=== PATIENT | male | born 1935 | race Caucasian/White ===

== ENCOUNTER 2020-02-19 13:58 | Emergency (ER) | payer MEDICARE ==
[~2020-02-19] VITALS: Ht 180.3 cm; Wt 83.4 kg
[~2020-02-19 13:58] MED LIST: ACET1TAB64 PO; ALBU8.5H8 INH; AMLO-150 PO; ASPI-515 PO; ASPI-696 PO; ASPI325T17 PO; ATOR-2 PO; ATOR40TA78 PO; AZIT500T10 PO; CLOP75TA PO; DIAZ5TAB4 PO; GUAI118L19 PO; GUAI600T31 PO; LISI10TA2 PO; LISI5TAB7 PO; MEMA5TAB PO; METH4TAB2 PO; OMEP-110 PO; PANT40TA5 PO; POLY10DR3 EACHEYE; ULTIMATE COLON CARE PO
--- NOTE | 2020-02-19 14:36 | NUR ---
THIS IS A 84 YO M W/ C/O DRAINAGE FROM PROCEDURE SITE. PT HAD AN ENDARTERECTOMY DONE LAST WEEK AND REPORTS IT HAS NOT STOPPED DRAINING. PT WAS SEEN BY HIS NEUROLOGIST DIANA BYDR NP TODAY AND WAS ADVISED TO COME STRAIGHT TO ED TO HAVE DRAIN PLACED. PT JAQUI HOLLAND. PT RESTING ON GURNEY W/ CALL LIGHT IN REACH AND FAMILY AT BEDSIDE. DRESSING ON WOUND. AWAITING ED EVAL. Addendum: 02/19/20 at 1441 by MARCO ANTONIO THIS IS A 84 YO M W/ C/O DRAINAGE FROM PROCEDURE SITE. PT HAD A CAROTID ENDARTERECTOMY DONE ON 02/05/20 AND REPORTS IT HAS NOT STOPPED DRAINING. PT WAS SEEN BY HIS NEUROLOGIST DIANA BYRD NP TODAY AND WAS ADVISED TO COME STRAIGHT TO ED TO HAVE DRAIN PLACED. PT JAQUI HOLLAND. PT RESTING ON GURNEY W/ CALL LIGHT IN REACH AND FAMILY AT BEDSIDE. DRESSING ON WOUND. AWAITING ED EVAL.
--- NOTE | 2020-02-19 14:48 | NUR ---
LUNCH RN: PT RESTING IN ROOM, AWAITING FOR PT TO BE SEEN BY MD.
[2020-02-19 15:37] LABS: BASOPHILS # (AUTO) 0.08 x10^3/uL (0-0.1); BASOPHILS % (AUTO) 1 % (0-1); EOSINOPHILS # (AUTO) 1.08 x10^3/uL (0-0.4); EOSINOPHILS % (AUTO) 9 % (1-7); LYMPHOCYTES % (AUTO) 24 % (22-44); MD NO; MEAN CORPUSCULAR HEMOGLOBIN 30.5 pg (27.5-34.5); MEAN CORPUSCULAR VOLUME 92.6 fL (81-97); MEAN PLATELET VOLUME 7.8 fL (7.4-10.4); MONOCYTES % (AUTO) 5 % (2-9); NEUTROPHILS # (AUTO) 7.25 x10^3/uL (1.8-6.8); NEUTROPHILS % (AUTO) 61 % (42-75); PLATELET COUNT 434 x10^3/uL (130-400); RED BLOOD COUNT 4.39 x10^6/uL (4.38-5.82); RED CELL DISTRIBUTION WIDTH 15.8 % (9.4-14.8)
[2020-02-19 15:44] LABS: ANION GAP 3 mmol/L (5-15); CALCIUM 8.4 mg/dL (8.5-10.1); CHLORIDE 109 mmol/L (98-107); CREATININE 1.09 mg/dL (0.7-1.3)
--- NOTE | 2020-02-19 16:12 | NUR ---
PT RESTING ON [place] W/ CALL LIGHT IN REACH, AWAITING CT.
--- NOTE | 2020-02-19 16:45 | NUR ---
PT TO CT.
[2020-02-19 17:03] VITALS: BP 148/67
--- NOTE | 2020-02-19 17:03 | NUR ---
PT SENT BACK FROM CT. CT DOES NOT FEEL COMFORTABLE USING CURRENT PIV. BABAR RIOS IN ROOM W/ US TO START ANOTHER LINE FOR CT.
--- NOTE | 2020-02-19 17:29 | NUR ---
CT CALLED TO COME PROFESSOR OF HISTORY PT.
--- NOTE | 2020-02-19 17:36 | NUR ---
PT TO CT.
[2020-02-19] MEDS ORDERED: OMNIPAQUE 350 MG/ML, 100ML BOTTLE ONE (18:00)
--- NOTE | 2020-02-19 18:36 | NUR ---
IN ROOM TO UPDATE PT ON RESULTS.
[2020-02-19] MEDS ORDERED: NEOSPORIN OINT. PKT 1 PACKET ONE (18:43)
--- NOTE | 2020-02-19 19:19 | NUR ---
Patient given discharge instructions and they have confirmed that they understand the instructions. Patient ambulatory with steady gait.
== END 2020-02-19 19:21 | disposition home or self-care (01) ==
LOC: ED 15:32
DX: L03.221 Cellulitis of neck (principal); I10 Essential (primary) hypertension; E78.5 Hyperlipidemia, unspecified; K21.9 Gastro-esophageal reflux disease without esophagitis; E78.00 Pure hypercholesterolemia, unspecified; Z86.73 Personal history of transient ischemic attack (TIA), and cerebral infarction without residual deficits; Z86.79 Personal history of other diseases of the circulatory system; Z90.10 Acquired absence of unspecified breast and nipple
CPT/HCPCS: 36415; 70491; 80048; 85025; 99285; Q9967

== ENCOUNTER 2020-03-22 10:03 | Outpatient (CLI) | payer MEDICARE ==
[2020-03-22 13:08] LABS: CREATININE 1.09 mg/dL (0.7-1.3)
== END 2020-03-22 23:59 | disposition home or self-care (01) ==
LOC: CFH 10:03
PROVIDERS: ATTEND Nurse Practitioner Family
DX: I63.9 Cerebral infarction, unspecified (principal); I65.21 Occlusion and stenosis of right carotid artery
CPT/HCPCS: 36415; 82565; 84520

== ENCOUNTER → 2020-04-13 | Outpatient (CLI) | payer MEDICARE ==
[~2020-04-13] MED LIST changes: +OMNIPAQUE 350 MG/ML, 100ML BOTTLE ONE
== END | disposition home or self-care (01) ==
LOC: CFH 09:52
PROVIDERS: ATTEND Nurse Practitioner Family
DX: I65.02 Occlusion and stenosis of left vertebral artery (principal); I65.23 Occlusion and stenosis of bilateral carotid arteries; I63.9 Cerebral infarction, unspecified
CPT/HCPCS: 70498; Q9967

== ENCOUNTER → 2020-05-18 | Outpatient (CLI) | payer MEDICARE ==
[~2020-05-18] MED LIST changes: -OMNIPAQUE 350 MG/ML, 100ML BOTTLE ONE; +REGADENOSON 0.4 MG/5 ML SYRINGE ONE
== END | disposition home or self-care (01) ==
LOC: CFH 08:00
PROVIDERS: ATTEND Internal Medicine Cardiovascular Disease
DX: I25.9 Chronic ischemic heart disease, unspecified (principal); I65.21 Occlusion and stenosis of right carotid artery
CPT/HCPCS: 78452; 93017; A9502; J2785

== ENCOUNTER → 2020-05-27 | Outpatient (CLI) | payer MEDICARE ==
[~2020-05-27] MED LIST changes: -REGADENOSON 0.4 MG/5 ML SYRINGE ONE
[2020-05-27 12:58] LABS: CHLORIDE 111 mmol/L (98-107)
[2020-05-27 13:12] LABS: ALANINE AMINOTRANSFERASE 27 U/L (12-78); ALBUMIN 3.7 g/dL (3.4-5.0); ALKALINE PHOSPHATASE 96 U/L (45-117); ANION GAP 8 mmol/L (5-15); BILIRUBIN,TOTAL 0.6 mg/dL (0.2-1.0); CALCIUM 8.4 mg/dL (8.5-10.1); CHOL/HDL RATIO 3.6; CHOLESTEROL, TOTAL 134 mg/dL (140-239); CREATININE 0.83 mg/dL (0.7-1.3); HDL CHOL % 28 % (26-37); HDL CHOLESTEROL (DIRECT) 37 mg/dL (40-60); LDL CHOLESTEROL,CALCULATED 71 mg/dL (54-169); LDL/HDL RATIO 1.9 (0.5-3.0); TRIGLYCERIDES 130 mg/dL (50-200); VLDL CHOLESTEROL 26 mg/dL (0-25)
== END | disposition home or self-care (01) ==
LOC: CFH 08:31
PROVIDERS: ATTEND Internal Medicine Cardiovascular Disease
DX: I10 Essential (primary) hypertension (principal); D64.9 Anemia, unspecified; E78.5 Hyperlipidemia, unspecified; R00.1 Bradycardia, unspecified
CPT/HCPCS: 36415; 80053; 80061

== ENCOUNTER 2020-07-01 10:08 | Observation (INO) | payer MEDICARE ==
[~2020-07-01] VITALS: Ht 180.3 cm; Wt 83.1 kg
[~2020-07-01 10:08] MED LIST changes: -PANT40TA5 PO; +PANT40TA6 PO
[2020-07-01] MEDS ORDERED: LIDOCAINE 2%, 20ML ONE ×2 (11:00→11:35)
[2020-07-01] MEDS ORDERED: MIDAZOLAM 1 MG/ML, 5ML ONE (11:35)
[2020-07-01] MEDS ORDERED: FENTANYL PF 100 MCG/2ML ONE (11:35)
[2020-07-01 11:40] VITALS: BP 133/66
[2020-07-01] MEDS ORDERED: FAMO20TA7 PO (11:50)
[2020-07-01] MEDS ORDERED: AMLO-150 PO (11:50)
[2020-07-01] MEDS ORDERED: ASPI-515 PO (11:50)
[2020-07-01] MEDS ORDERED: LIDOCAINE 1%-EPI 1:100K, 20ML SQ PRN (12:00)
[2020-07-01] MEDS ORDERED: PLEASE ENTER HEIGHT AND WEIGHT MC SCH (12:00)
[2020-07-01] MEDS: SODIUM CHLORIDE 0.9% 1,000 ML IV SCH ×8 (12:00→22:00)
[2020-07-01 12:19] LABS: INTERNATIONAL NORMALIZED RATIO 0.99 (0.93-1.1); PROTHROMBIN TIME 10.2 Seconds (9.6-11.5)
[2020-07-01] MEDS ORDERED: DIPHENHYDRAMINE 50 MG/ML, 1ML ONE (12:23)
[2020-07-01] MEDS ORDERED: methylPREDNISolone SOD SUCC 125 MG/2 ML ONE (12:23)
[2020-07-01 12:26] LABS: BASOPHILS # (AUTO) 0.08 x10^3/uL (0-0.1); BASOPHILS % (AUTO) 1 % (0-1); EOSINOPHILS # (AUTO) 0.86 x10^3/uL (0-0.4); EOSINOPHILS % (AUTO) 9 % (1-7); LYMPHOCYTES # (AUTO) 2.59 x10^3/uL (1-3.4); LYMPHOCYTES % (AUTO) 26 % (22-44); MD NO; MEAN CORPUSCULAR HEMOGLOBIN 29.4 pg (27.5-34.5); MEAN CORPUSCULAR HGB CONC 32.3 g/dL (33.2-36.2); MEAN PLATELET VOLUME 7.4 fL (7.4-10.4); MONOCYTES # (AUTO) 0.52 x10^3/uL (0.2-0.8); MONOCYTES % (AUTO) 5 % (2-9); NEUTROPHILS % (AUTO) 60 % (42-75); PLATELET COUNT 323 x10^3/uL (130-400); RED BLOOD COUNT 4.24 x10^6/uL (4.38-5.82); RED CELL DISTRIBUTION WIDTH 15.9 % (9.4-14.8)
[2020-07-01] MEDS ORDERED: BIVALIRUDIN 250 MG ONE (12:50)
[2020-07-01 13:04] LABS: CHLORIDE 111 mmol/L (98-107)
[2020-07-01 13:09] LABS: ANION GAP 8 mmol/L (5-15); CALCIUM 8.4 mg/dL (8.5-10.1); CREATININE 0.81 mg/dL (0.7-1.3)
[2020-07-01] MEDS ORDERED: BIVALIRUDIN 250 MG in SODIUM CHLORIDE 0.9% 50 ML IV SCH (13:31)
[2020-07-01 19:17] VITALS: BP 114/70
[2020-07-01] MEDS ORDERED: ATORVASTATIN 80 MG TABLET PO SCH (21:00)
[2020-07-01] MEDS: FAMOTIDINE 20 MG TABLET PO SCH (21:00)
[2020-07-01] MEDS: LISINOPRIL 10 MG TABLET PO SCH (21:40)
[2020-07-02 01:26] VITALS: BP 121/62
[2020-07-02] MEDS: SODIUM CHLORIDE 0.9% 1,000 ML IV SCH ×7 (02:00→09:58)
[2020-07-02 06:34] VITALS: BP 136/77
[2020-07-02 06:39] LABS: ANION GAP 6 mmol/L (5-15); CALCIUM 8.3 mg/dL (8.5-10.1); CHLORIDE 111 mmol/L (98-107); CREATININE 0.88 mg/dL (0.7-1.3)
[2020-07-02] MEDS ORDERED: ASPIRIN 81 MG TABLET EC PO SCH (09:00)
[2020-07-02] MEDS ORDERED: CLOPIDOGREL 75 MG TABLET PO SCH (09:00)
[2020-07-02] MEDS ORDERED: AMLODIPINE 5 MG TABLET PO SCH (09:00)
[2020-07-02 09:16] VITALS: BP 136/53
[2020-07-02] MEDS: LISINOPRIL 10 MG TABLET PO SCH (09:19)
[2020-07-02] MEDS: FAMOTIDINE 20 MG TABLET PO SCH (09:21)
== END 2020-07-02 12:42 | disposition home or self-care (01) ==
LOC: CACL 10:08 → 5SO 13:41 → CACL 23:54 → 5SO 23:54 → DCLOUNGE 07-02 12:28
PROVIDERS: ADMIT Internal Medicine Cardiovascular Disease; ATTEND Internal Medicine Cardiovascular Disease
DX: I25.10 Atherosclerotic heart disease of native coronary artery without angina pectoris (principal); I65.21 Occlusion and stenosis of right carotid artery; I10 Essential (primary) hypertension; E78.5 Hyperlipidemia, unspecified; K21.9 Gastro-esophageal reflux disease without esophagitis; D64.9 Anemia, unspecified; I63.9 Cerebral infarction, unspecified; F03.90 Unspecified dementia, unspecified severity, without behavioral disturbance, psychotic disturbance, mood disturbance, and anxiety; H81.09 Meniere's disease, unspecified ear; R93.1 Abnormal findings on diagnostic imaging of heart and coronary circulation; Z86.73 Personal history of transient ischemic attack (TIA), and cerebral infarction without residual deficits; Z95.5 Presence of coronary angioplasty implant and graft; R00.1 Bradycardia, unspecified; Z79.01 Long term (current) use of anticoagulants; Z79.82 Long term (current) use of aspirin; Z79.899 Other long term (current) drug therapy
CPT/HCPCS: 36415; 80048; 85025; 85610; 85730; 93005; 93458; 99156; 99157; C1725; C1760; C1769; C1874; C1887; C1894; C9600; G0378; J0583; J1200; J2250; J2930; J3010; J3490; J7030; Q9967

== ENCOUNTER → 2020-08-16 | Outpatient (CLI) | payer MEDICARE ==
[~2020-08-16] MED LIST changes: +FAMO20TA7 PO; +OMNIPAQUE 350 MG/ML, 100ML BOTTLE ONE
== END | disposition home or self-care (01) ==
LOC: CFH 12:29
PROVIDERS: ATTEND Nurse Practitioner Family
DX: I65.23 Occlusion and stenosis of bilateral carotid arteries (principal); I63.9 Cerebral infarction, unspecified
CPT/HCPCS: 70498; 82565; Q9967

== ENCOUNTER 2020-11-24 11:22 | Emergency (ER) | payer MEDICARE ==
[~2020-11-24] VITALS: Ht 180.3 cm; Wt 86.0 kg
[~2020-11-24 11:22] MED LIST changes: -ASPI-515 PO; +ASPI-963 PO; +LISI10TA19 PO; -LISI10TA2 PO; -OMNIPAQUE 350 MG/ML, 100ML BOTTLE ONE
[2020-11-24] MEDS ORDERED: MORPHINE SULFATE 4 MG/ML, 1ML ONE (12:27)
[2020-11-24] MEDS ORDERED: ASPIRIN 81 MG TABLET CHEW ONE (12:27)
[2020-11-24] MEDS ORDERED: SODIUM CHLORIDE 0.9% 1,000ML IVBOLUS ONE (12:30)
[2020-11-24] MEDS ORDERED: SODIUM CHLORIDE FLUSH 10ML SYR IVF ONE (12:30)
[2020-11-24] MEDS ORDERED: ASPIRIN 81 MG TABLET CHEW PO ONE (12:30)
[2020-11-24] MEDS ORDERED: MORPHINE SULFATE 4 MG/ML, 1ML IVPush PRN (12:30)
--- NOTE | 2020-11-24 13:00 | NUR ---
PT RESTING COMFORTABLY. MONITOR IN PLACE. SINUS FRANCISCO ON MONITOR. VSS. SO AT BEDSIDE.
[2020-11-24 13:09] LABS: BASOPHILS % (AUTO) 2 % (0-1); EOSINOPHILS % (AUTO) 5 % (1-7); LYMPHOCYTES % (AUTO) 18 % (22-44); MEAN CORPUSCULAR HGB CONC 33.7 g/dL (33.2-36.2); MEAN PLATELET VOLUME 7.4 fL (7.4-10.4); MONOCYTES % (AUTO) 7 % (2-9); NEUTROPHILS % (AUTO) 68 % (42-75); PLATELET COUNT 346 x10^3/uL (130-400)
[2020-11-24 13:10] LABS: MD NO
[2020-11-24 13:20] LABS: ALANINE AMINOTRANSFERASE 23 U/L (12-78); ALBUMIN 3.2 g/dL (3.4-5.0); ANION GAP 6 mmol/L (5-15); CALCIUM 7.9 mg/dL (8.5-10.1); CHLORIDE 116 mmol/L (98-107); CREATININE 1.32 mg/dL (0.7-1.3); INTERNATIONAL NORMALIZED RATIO 1.02 (0.93-1.1); PROTHROMBIN TIME 10.9 Seconds (9.6-11.5)
[2020-11-24 13:24] LABS: ALKALINE PHOSPHATASE 101 U/L (45-117); BILIRUBIN,TOTAL 0.3 mg/dL (0.2-1.0); TOTAL PROTEIN 6.2 g/dL (6.4-8.2); TROPONIN I < 0.015 ng/mL (0.000-0.045)
--- NOTE | 2020-11-24 14:15 | NUR ---
PT TO CT
--- NOTE | 2020-11-24 14:37 | NUR ---
PT BACK FROM CT
[2020-11-24] MEDS ORDERED: OMNIPAQUE 350 MG/ML, 100ML BOTTLE ONE (14:44)
[2020-11-24 15:31] VITALS: BP 105/64
== END 2020-11-24 15:32 | disposition home or self-care (01) ==
LOC: ED 13:24
DX: I95.9 Hypotension, unspecified (principal); M54.5 Low back pain; R42 Dizziness and giddiness
CPT/HCPCS: 36415; 71275; 80053; 83605; 84484; 85025; 85610; 85730; 93005; 96361; 96374; 99285; J2270; J7030; Q9967

== ENCOUNTER 2021-06-09 13:40 | Inpatient (IN) | payer MEDICARE ==
[~2021-06-09] VITALS: Ht 180.3 cm; Wt 81.8 kg
--- NOTE | 2021-06-09 14:24 | NUR ---
PT TO ROOM 7 W/ C/O MGLF YESTERDAY NIGHT AND PT HIT HIS HEAD. PER PT WAS ALTERED AT THAT TIME. PER PT TAKING COUMADIN, XARELTO, AND ASA. VERIFIED W/ PT AND SHE STATES PT IS ON BOTH BLOOD THINNERS. PT ALSO STATES HE HAS BEEN HAVING NAUSEA AND EMESIS. DENIES DIARRHEA. HAS C/O CONSTIPATION. LBM 06/09/21. PT RESTING ON GURNEY. NADN. MONITORS APPLIED. VSS. WARM BLANKET PROVIDED. CALL LIGHT IN REACH. PIV INITIATED. ERP DR. REILLY AT BEDSIDE FOR EVAL.
[2021-06-09] MEDS ORDERED: SODIUM CHLORIDE FLUSH 10ML SYR IVF ONE (14:30)
[2021-06-09] MEDS ORDERED: SODIUM CHLORIDE 0.9% 1,000ML IVBOLUS ONE (14:30)
[2021-06-09 14:45] LABS: BASOPHILS % (AUTO) 1 % (0-1); EOSINOPHILS % (AUTO) 1 % (1-7); LYMPHOCYTES % (AUTO) 17 % (22-44); MEAN CORPUSCULAR HEMOGLOBIN 29.5 pg (27.5-34.5); MEAN CORPUSCULAR HGB CONC 32.3 g/dL (33.2-36.2); MEAN PLATELET VOLUME 7.4 fL (7.4-10.4); MONOCYTES % (AUTO) 8 % (2-9); NEUTROPHILS % (AUTO) 73 % (42-75); PLATELET COUNT 449 x10^3/uL (130-400); RED BLOOD COUNT 2.35 x10^6/uL (4.38-5.82); RED CELL DISTRIBUTION WIDTH 16.6 % (9.4-14.8)
[2021-06-09 14:47] LABS: ALANINE AMINOTRANSFERASE 23 U/L (12-78); ALBUMIN 3.2 g/dL (3.4-5.0); ANION GAP 7 mmol/L (5-15); CALCIUM 7.5 mg/dL (8.5-10.1); CHLORIDE 100 mmol/L (98-107); CREATININE 0.94 mg/dL (0.7-1.3)
[2021-06-09 14:53] LABS: ALKALINE PHOSPHATASE 69 U/L (45-117); BILIRUBIN,TOTAL 0.3 mg/dL (0.2-1.0); TOTAL PROTEIN 6.3 g/dL (6.4-8.2); TROPONIN I < 0.015 ng/mL (0.000-0.045)
--- NOTE | 2021-06-09 14:57 | NUR ---
ERP DR. REILLY AT BEDSIDE FOR RE-EVAL.
[2021-06-09 15:08] LABS: MICROSCOPIC AUTO
--- NOTE | 2021-06-09 15:10 | NUR ---
CONSENT FOR BLOOD SIGNED BY PT, THIS RN, AND ERP DR. REILLY.
[2021-06-09 15:12] LABS: INTERNATIONAL NORMALIZED RATIO 1.23 (0.93-1.1)
[2021-06-09] MEDS ORDERED: SODIUM CHLORIDE FLUSH 10ML SYR IVF PRN (16:00)
--- NOTE | 2021-06-09 16:39 | NUR ---
PT RESTING ON GURNEY. NADN. HOLLAND.
[2021-06-09 16:52] VITALS: BP 111/43
--- NOTE | 2021-06-09 16:58 | NUR ---
1ST UNIT BLOOD INFUSING. PT TOLERATING WELL.
[2021-06-09 17:10] VITALS: BP 123/42
--- NOTE | 2021-06-09 17:27 | NUR ---
REPORT GIVEN TO SUMMER, RECEIVING RN. ALL QUESTIONS ANSWERED. AWAITING PT TRANSPORT.
--- NOTE | 2021-06-09 17:40 | NUR ---
PT RESTING ON GURNEY. NADN. HOLLAND.
[2021-06-09 17:56] VITALS: BP 104/42
[2021-06-09] MEDS ORDERED: ONDANSETRON 2MG/ML, 2ML IVPush PRN (18:00)
[2021-06-09 18:36] VITALS: BP 145/91
[2021-06-09] MEDS: PANTOPRAZOLE 40 MG IV IVPush SCH ×2 (19:30→20:35)
[2021-06-09 20:00] VITALS: BP 148/65
[2021-06-10 02:00] VITALS: BP 129/65
[2021-06-10 02:38] LABS: BASOPHILS % (AUTO) 3 % (0-1); EOSINOPHILS % (AUTO) 3 % (1-7); LYMPHOCYTES % (AUTO) 26 % (22-44); MEAN CORPUSCULAR HEMOGLOBIN 29.7 pg (27.5-34.5); MEAN CORPUSCULAR HGB CONC 33.2 g/dL (33.2-36.2); MEAN PLATELET VOLUME 7.2 fL (7.4-10.4); MONOCYTES % (AUTO) 8 % (2-9); NEUTROPHILS % (AUTO) 60 % (42-75); PLATELET COUNT 371 x10^3/uL (130-400); RED BLOOD COUNT 2.39 x10^6/uL (4.38-5.82); RED CELL DISTRIBUTION WIDTH 16.5 % (9.4-14.8)
[2021-06-10 02:46] LABS: ANION GAP 3 mmol/L (5-15); CALCIUM 7.3 mg/dL (8.5-10.1); CHLORIDE 110 mmol/L (98-107); CREATININE 0.76 mg/dL (0.7-1.3)
[2021-06-10 07:17] VITALS: BP 124/60
[2021-06-10] MEDS ORDERED: LIDOCAINE 1%, 20ML ONE (08:59)
[2021-06-10] MEDS ORDERED: PROPOFOL 10 MG/ML, 20ML ONE (08:59)
[2021-06-10] MEDS ORDERED: ONDANSETRON 2MG/ML, 2ML IVPush PRN (09:30)
[2021-06-10] MEDS ORDERED: FENTANYL PF 100 MCG/2ML IV PRN (09:30)
[2021-06-10] MEDS ORDERED: METOPROLOL 1 MG/ML, 5ML IV PRN (09:30)
[2021-06-10] MEDS ORDERED: hydrALAzine 20 MG/ML, 1ML IV PRN (09:30)
[2021-06-10] MEDS ORDERED: ACETAMINOPHEN 325 MG TABLET PO PRN (09:30)
[2021-06-10] MEDS ORDERED: OXYcodone 5 MG/5 ML ORAL.SOL UDC PO PRN (09:30)
[2021-06-10] MEDS ORDERED: LABETALOL 5MG/ML, 20ML IV PRN (09:30)
[2021-06-10] MEDS: PANTOPRAZOLE 40 MG IV IVPush SCH (10:02)
[2021-06-10] MEDS ORDERED: ASPI-963 PO (11:21)
[2021-06-10] MEDS ORDERED: RIVA1PAT12 TD (11:21)
[2021-06-10] MEDS ORDERED: FAMO40TA61 PO (11:21)
[2021-06-10] MEDS ORDERED: TAMS-11 PO (11:21)
[2021-06-10] MEDS ORDERED: RIVA20TA PO (11:21)
[2021-06-10] MEDS ORDERED: LISI10TA19 PO (11:21)
[2021-06-10] MEDS ORDERED: PRED1TAB19 PO (11:21)
[2021-06-10] MEDS ORDERED: ZINC220T2 PO (11:21)
[2021-06-10] MEDS ORDERED: SENN1TAB68 PO (11:21)
[2021-06-10] MEDS ORDERED: TRAZ-96 PO (11:21)
[2021-06-10 13:22] VITALS: BP 106/46
[2021-06-10 19:50] VITALS: BP 131/66
[2021-06-10] MEDS ORDERED: ATORVASTATIN 80 MG TABLET PO SCH (21:00)
[2021-06-10] MEDS: PANTOPRAZOLE 40MG TABLET PO SCH (21:19)
[2021-06-11 00:08] VITALS: BP 128/57
[2021-06-11 02:04] LABS: BASOPHILS % (AUTO) 2 % (0-1); EOSINOPHILS % (AUTO) 4 % (1-7); LYMPHOCYTES % (AUTO) 19 % (22-44); MEAN CORPUSCULAR HEMOGLOBIN 29.7 pg (27.5-34.5); MEAN PLATELET VOLUME 7.4 fL (7.4-10.4); MONOCYTES % (AUTO) 6 % (2-9); NEUTROPHILS % (AUTO) 70 % (42-75); PLATELET COUNT 416 x10^3/uL (130-400); RED BLOOD COUNT 2.54 x10^6/uL (4.38-5.82); RED CELL DISTRIBUTION WIDTH 16.3 % (9.4-14.8)
[2021-06-11 02:16] LABS: ALBUMIN 2.7 g/dL (3.4-5.0); ANION GAP 5 mmol/L (5-15); CALCIUM 7.4 mg/dL (8.5-10.1); CHLORIDE 109 mmol/L (98-107)
[2021-06-11 02:20] LABS: ALANINE AMINOTRANSFERASE 22 U/L (12-78); ALKALINE PHOSPHATASE 64 U/L (45-117); BILIRUBIN,TOTAL 0.3 mg/dL (0.2-1.0); CREATININE 0.88 mg/dL (0.7-1.3); TOTAL PROTEIN 5.5 g/dL (6.4-8.2)
[2021-06-11] MEDS ORDERED: TAMSULOSIN 0.4 MG CAP.ER.24H PO SCH (09:00)
[2021-06-11] MEDS ORDERED: PANT40TA6 PO (09:06)
[2021-06-11 09:13] VITALS: BP 152/68
[2021-06-11] MEDS: PANTOPRAZOLE 40MG TABLET PO SCH (09:22)
== END 2021-06-11 12:09 | disposition home or self-care (01) | DRG 378 ==
LOC: ED 15:30 → EDIP 15:47 → ED 16:45 → 4EST 18:33
PROVIDERS: ADMIT Internal Medicine; ATTEND Family Medicine
PROC: 30233N1 Transfusion of Nonautologous Red Blood Cells into Peripheral Vein, Percutaneous Approach (ICD-10-PCS; principal; 2021-06-09)
PROC: 0W3P8ZZ Control Bleeding in Gastrointestinal Tract, Via Natural or Artificial Opening Endoscopic (ICD-10-PCS; 2021-06-10)
DX: K25.4 Chronic or unspecified gastric ulcer with hemorrhage (principal); D62 Acute posthemorrhagic anemia; D68.69 Other thrombophilia; I25.10 Atherosclerotic heart disease of native coronary artery without angina pectoris; Z66 Do not resuscitate; Z20.822 Contact with and (suspected) exposure to COVID-19; E78.00 Pure hypercholesterolemia, unspecified; E78.5 Hyperlipidemia, unspecified; G30.9 Alzheimer's disease, unspecified; G31.83 Neurocognitive disorder with Lewy bodies; I10 Essential (primary) hypertension; I48.0 Paroxysmal atrial fibrillation; Z96.652 Presence of left artificial knee joint; W18.39XA Other fall on same level, initial encounter; K44.9 Diaphragmatic hernia without obstruction or gangrene; K31.7 Polyp of stomach and duodenum; K21.9 Gastro-esophageal reflux disease without esophagitis; K22.2 Esophageal obstruction; K59.00 Constipation, unspecified; Z79.82 Long term (current) use of aspirin; I25.2 Old myocardial infarction; Z79.01 Long term (current) use of anticoagulants; Z86.73 Personal history of transient ischemic attack (TIA), and cerebral infarction without residual deficits; Z95.5 Presence of coronary angioplasty implant and graft; Y93.89 Activity, other specified; Y92.098 Other place in other non-institutional residence as the place of occurrence of the external cause; Y99.8 Other external cause status; Z88.2 Allergy status to sulfonamides; Z91.013 Allergy to seafood; T39.015A Adverse effect of aspirin, initial encounter; T45.525A Adverse effect of antithrombotic drugs, initial encounter; T45.515A Adverse effect of anticoagulants, initial encounter
CPT/HCPCS: 36415; 70450; 71045; 80048; 80053; 81001; 84484; 85018; 85025; 85610; 85730; 86850; 86900; 86923; 87086; 87635; 93005; 96360; 99285; G0378; J2704; C9113; J7030; P9016

== ENCOUNTER 2021-06-17 09:51 | Emergency (ER) | payer MEDICARE ==
[~2021-06-17] VITALS: Ht 180.3 cm; Wt 79.4 kg
[~2021-06-17 09:51] MED LIST changes: +FAMO40TA61 PO; +PRED1TAB19 PO; +RIVA1PAT12 TD; +RIVA20TA PO; +SENN1TAB68 PO; +TAMS-11 PO; +TRAZ-96 PO; +ZINC220T2 PO
[2021-06-17] MEDS ORDERED: ONDANSETRON 2MG/ML, 2ML IVPush ONE (10:30)
[2021-06-17] MEDS ORDERED: SODIUM CHLORIDE FLUSH 10ML SYR IVF ONE (10:30)
[2021-06-17 11:48] LABS: BASOPHILS % (AUTO) 1 % (0-1); EOSINOPHILS % (AUTO) 1 % (1-7); LYMPHOCYTES % (AUTO) 23 % (22-44); MEAN CORPUSCULAR HEMOGLOBIN 29.7 pg (27.5-34.5); MEAN CORPUSCULAR HGB CONC 33.5 g/dL (33.2-36.2); MONOCYTES % (AUTO) 6 % (2-9); NEUTROPHILS % (AUTO) 68 % (42-75); PLATELET COUNT 615 x10^3/uL (130-400); RED CELL DISTRIBUTION WIDTH 16.2 % (9.4-14.8)
[2021-06-17 11:54] LABS: ALBUMIN 3.4 g/dL (3.4-5.0); ANION GAP 7 mmol/L (5-15); CALCIUM 8.3 mg/dL (8.5-10.1); CHLORIDE 106 mmol/L (98-107)
[2021-06-17 11:58] LABS: ALANINE AMINOTRANSFERASE 24 U/L (12-78); ALKALINE PHOSPHATASE 78 U/L (45-117); BILIRUBIN,TOTAL 0.4 mg/dL (0.2-1.0); CREATININE 0.77 mg/dL (0.7-1.3); TOTAL PROTEIN 6.6 g/dL (6.4-8.2)
--- NOTE | 2021-06-17 13:12 | NUR ---
NEED IV IN PLACE TO DO CT EXAM
--- NOTE | 2021-06-17 14:26 | NUR ---
TO ROOM FROM LOBBY. NAD.
--- NOTE | 2021-06-17 14:32 | NUR ---
PATIENT ARRIVES WITH FAMILY, FEELING WEAK AND EMPTY STOMACH WITH FEELINGS OF OCCASIONAL VOMIT. SOME DIZZINESS. WEAK ON FEET.
[2021-06-17] MEDS ORDERED: SODIUM CHLORIDE 0.9%, 500ML IVBOLUS ONE (15:00)
[2021-06-17] MEDS ORDERED: ONDANSETRON 2MG/ML, 2ML ONE (15:07)
[2021-06-17] MEDS ORDERED: PRED5TAB PO (15:49)
--- NOTE | 2021-06-17 16:09 | NUR ---
LEFT FOR CT SCAN
[2021-06-17] MEDS ORDERED: OMNIPAQUE 350 MG/ML, 100ML BOTTLE ONE (16:19)
--- NOTE | 2021-06-17 16:36 | NUR ---
Note gushelio in ED - 06/17/21 at 1640 by [email or web address] GOT PATIENT IN WHEELCHAIR TO BATHROOM TO GET URINE SAMPLE. SHE HAS BASELINE PRESENTATION SINCE ARRIVAL OF BEING UNHAPPY WITH SURROUNDINGS, MEAN TO DAUGHTER. DAUGHTER HELPFUL AND HELPING GET HER TO BATHROOM. AIDET. GOT HER MULTIPLE BLANKETS, GOT HER COMFORTABLE AM ABLE. GOT TV ON AND REMOTE.
--- NOTE | 2021-06-17 16:41 | NUR ---
FAMILY AT BEDSIDE. PATIENT PLEASAN AND KIND
--- NOTE | 2021-06-17 16:51 | NUR ---
PATIENT GIVEN APPLE SAUCE, WATER, SPRITE AND CRACKERS. WILL REASSESS IN 15 AND WALK.
--- NOTE | 2021-06-17 17:04 | NUR ---
PATIENT ROAD TESTED AND DID WELL ON FEET. EATING LIGHT AMOUNTS OF FOOD AND TOLERATING WELL.
[2021-06-17 17:27] VITALS: BP 122/78
== END 2021-06-17 17:35 | disposition home or self-care (01) ==
LOC: ED 15:54
DX: K29.01 Acute gastritis with bleeding (principal); R11.2 Nausea with vomiting, unspecified; I10 Essential (primary) hypertension; E78.00 Pure hypercholesterolemia, unspecified
CPT/HCPCS: 36415; 74177; 80053; 83690; 85025; 93005; 96374; 99285; J2405; J7040; Q9967

== ENCOUNTER → 2021-06-28 | Outpatient (CLI) | payer MEDICARE ==
[~2021-06-28] MED LIST changes: +PRED5TAB PO
[2021-06-28 16:02] LABS: BASOPHILS % (AUTO) 1 % (0-1); EOSINOPHILS % (AUTO) 1 % (1-7); LYMPHOCYTES % (AUTO) 20 % (22-44); MEAN CORPUSCULAR HEMOGLOBIN 28.1 pg (27.5-34.5); MEAN CORPUSCULAR HGB CONC 32.8 g/dL (33.2-36.2); MEAN PLATELET VOLUME 7.1 fL (7.4-10.4); MONOCYTES % (AUTO) 6 % (2-9); NEUTROPHILS % (AUTO) 73 % (42-75); PLATELET COUNT 526 x10^3/uL (130-400); RED BLOOD COUNT 3.03 x10^6/uL (4.38-5.82)
== END | disposition home or self-care (01) ==
LOC: LAB 15:08
PROVIDERS: ATTEND Nurse Practitioner Family
DX: R93.1 Abnormal findings on diagnostic imaging of heart and coronary circulation (principal)
CPT/HCPCS: 36415; 85025